=== PATIENT | female | born 1950 | race Caucasian/White ===

== ENCOUNTER 2020-04-13 14:34 | Emergency (ER) | payer MEDICARE, BC ==
[2020-04-13 14:53] VITALS: BP 155/60; PULSE 66
[2020-04-13] MEDS ORDERED: HYDROmorphone 0.5 MG/0.5 ML Syringe IM ONE (15:04)
--- NOTE | 2020-04-13 15:13 | EDM.PDOC ---
ED HPI GENERAL MEDICAL PROBLEM - General Chief Complaint: Lower Extremity Injury/Pain Stated Complaint: R KNEE INJURY Time Seen by Provider: 04/13/20 15:06 Source of Information: Reports: Patient, Family, RN History Limitations: Reports: No Limitations - History of Present Illness INITIAL COMMENTS - FREE TEXT/NARRATIVE: Devika is a 70yo female that presents to the ED for c/o right knee pain. She was out for a walk this morning and lost her balance/ tripped around 9:15. She landed directly on her right knee and experienced pain immediately. Devika was able to walk the rest of the way home (estimates about 0.5 mile) but the pain and swelling continued to get worse. She took one of her old oxycodones around 10am with some relief. Patient has her knee elevated on a pillow. pain currently is 9/10. Onset: Today Onset Date: 04/13/20 Onset Time: 09:15 Duration: Getting Worse Location: Reports: Lower Extremity, Right (knee) Quality: Reports: Pressure, Sharp Severity: Severe Improves with: Reports: Immobilization Worsens with: Reports: Movement Treatments [employer] HELPER: Reports: Cold Therapy, Other Medication(s) (home oxycodone) Right Knee Pain Score (Numeric/FACES): 8 - Related Data Allergies Allergy/AdvReac Type Severity Reaction Status Date / Time No Known Allergies Allergy Verified 04/13/20 14:53 Home Meds: Home Meds Muscle Relaxer 1 tab PO ASDIRECTED 02/03/16 [History] Naproxen Sodium [Aleve] 2 tab PO ASDIRECTED 02/03/16 [History] oxyCODONE 5 mg PO ASDIRECTED 04/13/20 [History] Past Medical History Genitourinary History: Reports: None INDIGO MIXER History: Reports: Other (See Below) Other INDIGO MIXER History: suspicious cells Musculoskeletal History: Reports: Back Pain, Chronic - Infectious Disease History Infectious Disease History: Reports: Chicken Pox - Past Surgical History Head Surgeries/Procedures: Reports: None Female Surgical History: Reports: Hysterectomy Musculoskeletal Surgical History: Reports: None Dermatological Surgical History: Reports: None Social & Family History - Tobacco Use Smoking Status *Q: Never Smoker Second Hand Smoke Exposure: No - Caffeine Use Caffeine Use: Reports: Coffee - Recreational Drug Use Recreational Drug Use: No Review of Systems - Review of Systems Review Of Systems: See Below Constitutional: Reports: No Symptoms Eyes: Reports: No Symptoms Ears: Reports: No Symptoms Nose: Reports: No Symptoms Mouth/Throat: Reports: No Symptoms Respiratory: Reports: No Symptoms Cardiovascular: Reports: No Symptoms GI/Abdominal: Reports: No Symptoms Genitourinary: Reports: No Symptoms Musculoskeletal: Reports: Leg Pain (right knee), Joint Pain (right knee), Joint Swelling, Muscle Pain (right distal thigh) Skin: Reports: Other (abrasion to knee) Neurological: Reports: No Symptoms Psychiatric: Reports: No Symptoms ED EXAM, GENERAL - Physical Exam Exam: See Below Exam Limited By: Physical Impairment (knee apin) General Appearance: Alert, WD/WN, Mild Distress Respiratory/Chest: No Respiratory Distress, No Accessory Muscle Use Cardiovascular: Normal Peripheral Pulses Peripheral Pulses: 2+: Radial (L), Radial (R), Dorsalis Pedis (L), Dorsalis Pedis (R) Extremities: No Pedal Edema, Normal Capillary Refill, Joint Swelling (right knee (distal thigh muscle and inferior medial knee especially). no patellar ballotment. ), Limited Range of Motion (unable to fully extend knee due to pain, can flex to approximately 140 degrees), Increased Warmth (generalized right knn), Other Neurological: Alert, Oriented, No Motor/Sensory Deficits (no sensory deficits) Psychiatric: Normal Affect Skin Exam: Warm, Dry, Other (superficial abrasion to right knee from fall. ) Course - Vital Signs Last Recorded V/S: Last Vital Signs Temp 96.4 F L 04/13/20 14:55 Pulse 66 04/13/20 14:55 Resp 14 04/13/20 14:55 BP 155/60 H 04/13/20 14:55 Pulse Ox 98 04/13/20 14:55 - Orders/Labs/Meds Orders: Active Orders 24 hr Category Date Time Status Consult to Orthopedic Clinic [CONS] Routine Cons 04/13/20 16:46 Active DME for Discharge [COMM] Stat Oth 04/13/20 16:48 Ordered Meds: Medications Discontinued Medications Generic Name Dose Route Start Last Admin Trade Name Freq PRN Reason Stop Dose Admin Hydromorphone HCl 0.5 mg 04/13/20 15:04 04/13/20 15:11 Dilaudid IM 04/13/20 15:05 0.5 mg ONETIME ONE Administration - Radiology Interpretation Free Text/Narrative:: negative x-ray and CT of right knee Departure - Departure Time of Disposition: 16:50 Disposition: Home, Self-Care 01 Clinical Impression: Knee abrasion, Knee pain, right, Soft tissue swelling - Discharge Information *PRESCRIPTION DRUG MONITORING PROGRAM REVIEWED*: No *COPY OF PRESCRIPTION DRUG MONITORING REPORT IN PATIENT SYDNEE: No Instructions: Acute Knee Pain, Adult Referrals: PCP,None [Primary Care Provider] - Forms: ED Department Discharge Additional Instructions: Use the knee immobilizer and crutches for now. Make take off and do gentle ROM if able. Do not force ROM though. You may leave off at night if you wnat. Minimal weight bearing on right leg until seen in ortho. Use ibuprofen 600 mg every 6 hours- take with food. Use the percocet for breakthrough pain. 1 tab every 6 hrs as needed. Do not drive or operate machinery while taking this medication. You may take 1 percocet along with 1 tab of tylenol for a total of 650mg of tylenol. Continue to ice to knee- wrap it in a towel so ice is not directly on your skin. The ortho clinic should call you for an appointment. Call or return to the ED with any concerns or worsening of symptoms. Sepsis Event Note (ED) - Evaluation Sepsis Screening Result: No Definite Risk - Focused Exam Vital Signs: Vital Signs Temp Pulse Resp BP Pulse Ox 04/13/20 14:55 96.4 F L 66 14 155/60 H 98 04/13/20 14:51 96.4 F L 66 14 155/60 H 98 - My Orders Last 24 Hours: My Active Orders 04/13/20 16:46 Consult to Orthopedic Clinic [CONS] Routine 04/13/20 16:48 DME for Discharge [COMM] Stat - Assessment/Plan Last 24 Hours: My Active Orders 04/13/20 16:46 Consult to Orthopedic Clinic [CONS] Routine 04/13/20 16:48 DME for Discharge [COMM] Stat Plan: knee immobilizer, crutches, and percocet for patient on discharge. referral to ortho clinic for 04/18
--- NOTE | 2020-04-13 16:10 | CRLCR ---
INDICATION: Fall, patellar pain. TECHNIQUE: X-ray right knee, 3 views. COMPARISON: None available. FINDINGS: The alignment is normal. There is mild tricompartmental joint space narrowing with tiny marginal osteophytes. Negative for acute fracture or dislocation. There is mild fullness of the suprapatellar region which suggests a small knee joint effusion. The overlying soft tissues otherwise unremarkable. No radiopaque foreign body is seen. IMPRESSION: 1. Probable small right knee joint effusion. Negative for acute fracture or dislocation. 2. 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 Dictated by Jessie Robledo MD @ 04/13/2020 4:07:28 PM Dictated by: Jessie Robledo MD @ 04/13/2020 16:07:37 (Electronically Signed)
--- NOTE | 2020-04-13 16:30 | CRLCT ---
INDICATION: Fall. TECHNIQUE: Axial images. Sagittal and coronal reconstructions. COMPARISON: Radiographs from earlier today. FINDINGS: Joint effusion. No fracture is identified. No subluxation or dislocation. Mild tricompartmental osteoarthritic changes. IMPRESSION: No CT evidence of acute osseous abnormality. If clinical suspicion remains high, or there is concern for acute internal derangement, consider MRI. Dictated by Shahab Nair MD @ 04/13/2020 4:29:33 PM Please note that all CT scans at this facility use dose modulation, iterative reconstruction, and/or weight-based dosing when appropriate to reduce radiation dose to as low as reasonably achievable. Dictated by: Shahab Nair MD @ 04/13/2020 16:29:48 (Electronically Signed)
== END 2020-04-13 17:16 | disposition home or self-care (01) ==
LOC: JP.ED 14:34
DX: S80.211A Abrasion, right knee, initial encounter (principal); W01.0XXA Fall on same level from slipping, tripping and stumbling without subsequent striking against object, initial encounter
CPT/HCPCS: 73564; 73700; 96372; 99283; J1170